=== PATIENT | female | born 1955 | race Caucasian/White ===

== ENCOUNTER 2023-05-13 01:31 | Inpatient (IN) | payer OTHER ==
[~2023-05-13] VITALS: Ht 160 cm; Wt 74.5 kg
[2023-05-13] MEDS ORDERED: TERA2CAP4 PO (01:47)
[2023-05-13] MEDS ORDERED: LISI20TA30 PO (01:47)
[2023-05-13] MEDS ORDERED: ASPI-612 PO (01:47)
[2023-05-13] MEDS ORDERED: AMLO2.5T4 PO (01:47)
[2023-05-13] MEDS ORDERED: ROSU40TA23 PO (01:47)
[2023-05-13 02:54] LABS: BASOPHILS % (AUTO) 0.6 % (0.0-2.0); EOSINOPHILS # (AUTO) 0.1 K/uL (0.0-0.7); EOSINOPHILS % (AUTO) 1.3 % (0.0-7.0); HEMOGLOBIN 12.4 g/dL (10.9-14.3); LYMPHOCYTES # (AUTO) 1.1 K/uL (0.8-4.8); LYMPHOCYTES % (AUTO) 20.2 % (20.5-51.5); MEAN CORPUSCULAR HEMOGLOBIN 29.8 uug (24.7-32.8); MEAN CORPUSCULAR HGB CONC 34 g/dL (32.3-35.6); MEAN CORPUSCULAR VOLUME 88.9 fL (75.5-95.3); MONOCYTES # (AUTO) 0.5 K/uL (0.1-1.30); MONOCYTES % (AUTO) 8.7 % (0.0-11.0); NEUTROPHILS # (AUTO) 3.9 K/uL (1.8-8.9); NEUTROPHILS % (AUTO) 69.2 % (38.5-71.5); PLATELET COUNT (AUTO) 199 K/uL (179-408); RED BLOOD CELL COUNT(AUTO) 4.16 MIL/uL (3.63-4.92); RED CELL DISTRIBUTION WIDTH 13.7 % (12.3-17.7); WHITE BLOOD COUNT (AUTO) 5.7 K/uL (3.8-11.8)
[2023-05-13 02:56] LABS: DIFFERENTIAL COMMENT 1
[2023-05-13] MEDS ORDERED: diphenhydrAMINE 50 MG/1 ML VIAL ONE (03:08)
[2023-05-13] MEDS ORDERED: MORPHINE SULFATE 4 MG/1 ML DISP.SYRIN ONE (03:08)
[2023-05-13 03:16] LABS: ALANINE AMINOTRANSFERASE 70 U/L (14-59); ALBUMIN 3.7 g/dL (3.4-5.0); ALKALINE PHOSPHATASE 56 U/L (50-136); ASPARTATE AMINOTRANSFERASE 45 U/L (15-37); BILIRUBIN,DIRECT 0.1 mg/dL (0.0-0.2); BILIRUBIN,TOTAL 0.5 mg/dL (0.2-1.0); CARBON DIOXIDE 26 mmol/L (21-32); CHLORIDE 103 mmol/L (98-107); GLUCOSE 117 mg/dL (74-106); POTASSIUM 3.7 mmol/L (3.5-5.1); SODIUM SERUM 139 mmol/L (136-145); TOTAL PROTEIN, SERUM 6.7 g/dL (6.4-8.2); UREA NITROGEN, BLOOD 22 mg/dL (7-18)
[2023-05-13] MEDS: diphenhydrAMINE 50 MG/1 ML VIAL IV ONE (03:16)
[2023-05-13] MEDS: MORPHINE SULFATE 4 MG/1 ML DISP.SYRIN IV ONE (03:17)
[2023-05-13] MEDS ORDERED: ONDANSETRON 4 MG/2 ML VIAL IV PRN (07:45)
[2023-05-13] MEDS ORDERED: REMEDY ESSENTIAL ZINC PASTE 113 GM TP PRN (07:45)
[2023-05-13] MEDS ORDERED: ACETAMINOPHEN 325 MG TABLET PO PRN (07:45)
[2023-05-13 07:57] LABS: *BILIRUBIN,URIN NEGATIVE (NEGATIVE); *BLOOD, URINE NEGATIVE (NEGATIVE); *CLARITY,URINE CLEAR (CLEAR); *COLOR,URINE YELLOW (YELLOW); *KETONES,URINE 1+ (NEGATIVE); *PROTEIN,URINE TRACE (NEGATIVE); *UROBILINOGEN,URINE 0.2 E.U./dl (NORMAL); LEUKOCYTE ESTERASE ,URINE NEGATIVE (NEGATIVE); NITRITE, URINE NEGATIVE (NEGATIVE); UGLUCOSE NEGATIVE (NEGATIVE)
[2023-05-13 08:02] LABS: *AMPHETAMINE, URINE NEGATIVE (NEGATIVE); *BARBITURATE, URINE NEGATIVE (NEGATIVE); *BENZODIAZEPINE, URINE NEGATIVE (NEGATIVE); *CANNABINOID, URINE NEGATIVE (NEGATIVE); *COCCAINE, URINE NEGATIVE (NEGATIVE); *OPIATE, URINE POSITIVE (NEGATIVE); *PHENCYCLIDINE SCREEN,URINE NEGATIVE (NEGATIVE); FENTANYL, URINE NEGATIVE (NEGATIVE)
[2023-05-13 08:25] LABS: BASOPHILS % (AUTO) 0.3 % (0.0-2.0); EOSINOPHILS % (AUTO) 0.4 % (0.0-7.0); HEMATOCRIT 34.6 % (31.2-41.9); HEMOGLOBIN 11.6 g/dL (10.9-14.3); LYMPHOCYTES # (AUTO) 0.8 K/uL (0.8-4.8); LYMPHOCYTES % (AUTO) 11.6 % (20.5-51.5); MEAN CORPUSCULAR HEMOGLOBIN 29.8 uug (24.7-32.8); MEAN CORPUSCULAR HGB CONC 34 g/dL (32.3-35.6); MEAN CORPUSCULAR VOLUME 88.9 fL (75.5-95.3); MONOCYTES # (AUTO) 0.5 K/uL (0.1-1.30); NEUTROPHILS # (AUTO) 5.8 K/uL (1.8-8.9); NEUTROPHILS % (AUTO) 80.7 % (38.5-71.5); PLATELET COUNT (AUTO) 217 K/uL (179-408); RED BLOOD CELL COUNT(AUTO) 3.89 MIL/uL (3.63-4.92); RED CELL DISTRIBUTION WIDTH 13.8 % (12.3-17.7); WHITE BLOOD COUNT (AUTO) 7.2 K/uL (3.8-11.8)
[2023-05-13 08:40] LABS: DIFFERENTIAL COMMENT 1
[2023-05-13 08:54] LABS: POTASSIUM 4.1 mmol/L (3.5-5.1)
[2023-05-13 08:56] LABS: BACTERIA,URINE FEW /HPF (NONE SEEN); SQUAMOUS EPITHELIAL CELL,UR FEW /HPF (NONE SEEN); URIC ACID CRYSTALS,URINE MODERATE /HPF (NONE SEEN); WBC,URINE 0-3 /HPF (0-3)
[2023-05-13] MEDS ORDERED: ASPIRIN 325 MG TABLET PO SCH (09:00)
[2023-05-13 09:03] LABS: ALBUMIN 3.5 g/dL (3.4-5.0); BILIRUBIN,TOTAL 0.6 mg/dL (0.2-1.0); MAGNESIUM 2.1 mg/dL (1.8-2.4); PHOSPHOROUS 4.2 mg/dL (2.5-4.9); TOTAL PROTEIN, SERUM 6.3 g/dL (6.4-8.2)
[2023-05-13 09:07] LABS: THYROID STIMULATING HORMONE 0.774 mIU/mL (0.358-3.740)
[2023-05-13] MEDS: MORPHINE SULFATE 2 MG/1 ML DISP.SYRIN IV PRN (10:49)
[2023-05-13] MEDS: AMLODIPINE 2.5 MG TABLET PO SCH (10:52)
[2023-05-13] MEDS: ASPIRIN EC 325 MG TABLET.DR PO SCH (10:52)
[2023-05-13] MEDS: LISINOPRIL 20 MG TABLET PO SCH (10:53)
[2023-05-13 11:15] VITALS: BP_SYST 127; BP_SYST 134; BP_SYST 138; BP_SYST 160; BP_DIAS 73; BP_DIAS 77; BP_DIAS 84; BP_DIAS 86; TEMP 98.8; O2SAT 96
[2023-05-13 15:22] VITALS: BP 167/64; TEMP 98.5; O2SAT 97
[2023-05-13 20:00] VITALS: BP 136/64; TEMP 98; O2SAT 95
[2023-05-13] MEDS: ROSUVASTATIN 40 MG PO SCH (20:40)
[2023-05-13] MEDS ORDERED: TERAZOSIN 1 MG CAPSULE PO SCH ×2 (21:00)
[2023-05-13] MEDS ORDERED: ROSUVASTATIN CALCIUM 40 MG PO SCH (21:00)
[2023-05-14] VITALS (8 sets, daily range): BP systolic 137–205; BP diastolic 70–90; TEMP 97.5–98.5; O2SAT 94–98
[2023-05-14] MEDS: IV NS 1000 ML 1,000 ML IV PRN (00:02)
[2023-05-14] MEDS: CLONIDINE HCL 0.1 MG TABLET PO PRN (01:05)
[2023-05-14 07:14] LABS: BASOPHILS % (AUTO) 0.8 % (0.0-2.0); EOSINOPHILS # (AUTO) 0.1 K/uL (0.0-0.7); EOSINOPHILS % (AUTO) 1.4 % (0.0-7.0); HEMATOCRIT 33.7 % (31.2-41.9); HEMOGLOBIN 11.4 g/dL (10.9-14.3); LYMPHOCYTES # (AUTO) 0.8 K/uL (0.8-4.8); LYMPHOCYTES % (AUTO) 15.9 % (20.5-51.5); MEAN CORPUSCULAR HEMOGLOBIN 30.2 uug (24.7-32.8); MEAN CORPUSCULAR HGB CONC 34 g/dL (32.3-35.6); MEAN CORPUSCULAR VOLUME 89.3 fL (75.5-95.3); MONOCYTES # (AUTO) 0.5 K/uL (0.1-1.30); MONOCYTES % (AUTO) 9.2 % (0.0-11.0); NEUTROPHILS # (AUTO) 3.7 K/uL (1.8-8.9); NEUTROPHILS % (AUTO) 72.7 % (38.5-71.5); PLATELET COUNT (AUTO) 189 K/uL (179-408); RED BLOOD CELL COUNT(AUTO) 3.77 MIL/uL (3.63-4.92); RED CELL DISTRIBUTION WIDTH 13.5 % (12.3-17.7)
[2023-05-14 07:30] LABS: CALCIUM 8.5 mg/dL (8.5-10.1); CREATININE 0.8 mg/dL (0.6-1.3); MAGNESIUM 2.1 mg/dL (1.8-2.4); PHOSPHOROUS 3.2 mg/dL (2.5-4.9); POTASSIUM 3.8 mmol/L (3.5-5.1)
[2023-05-14 07:44] LABS: DIFFERENTIAL COMMENT 1
[2023-05-14] MEDS ORDERED: VANCOMYCIN 1000 MG VIAL ONE (11:02)
[2023-05-14] MEDS ORDERED: FENTANYL CITRATE 100 MCG/2 ML AMPUL ONE (11:12)
[2023-05-14] MEDS ORDERED: BUPIVACAINE 0.25% 30 ML VIAL ONE (11:48)
[2023-05-14] MEDS ORDERED: IV D5W-0.45% NS +20 KCL 1,000 ML IV ONE (12:18)
[2023-05-14] MEDS ORDERED: METOCLOPRAMIDE HCL 10 MG/2 ML VIAL ONE (12:25)
[2023-05-14] MEDS ORDERED: ONDANSETRON 4 MG/2 ML VIAL ONE (12:25)
[2023-05-14] MEDS ORDERED: PROPOFOL 200 MG/20 ML BOTTLE ONE (12:25)
[2023-05-14] MEDS ORDERED: LIDOCAINE-MPF 2% 5 ML VIAL ONE (12:25)
[2023-05-14] MEDS ORDERED: EPHEDRINE SULFATE 50 MG/ML AMPUL ONE (12:25)
[2023-05-14] MEDS ORDERED: KETOROLAC TROMETHAMINE 30 MG INJ ONE (12:25)
[2023-05-14] MEDS ORDERED: CEFAZOLIN 1 G VIAL ONE (12:25)
[2023-05-14] MEDS ORDERED: DEXAMETHASONE SOD PHOSPHATE 4 MG INJ ONE (12:25)
[2023-05-14] MEDS ORDERED: HYDROCODONE/APAP 10-325 MG TABLET PO PRN (13:00)
[2023-05-14] MEDS ORDERED: MORPHINE SULFATE 4 MG/1 ML DISP.SYRIN IV PRN (13:00)
[2023-05-14] MEDS: MAGNESIUM HYDROXIDE 30 ML LIQUID UDC PO PRN (15:34)
[2023-05-14] MEDS: CEFAZOLIN 1 G in IV DEXTROSE 5% 50 ML IV SCH (18:13)
[2023-05-15] MEDS: IV D5W-0.45% NS +20 KCL 1,000 ML IV PRN (05:39)
[2023-05-15 06:00] VITALS: BP 193/82; TEMP 97.6; O2SAT 99
[2023-05-15] MEDS: LISINOPRIL 20 MG TABLET PO SCH (08:38)
[2023-05-15] MEDS: ASPIRIN EC 325 MG TABLET.DR PO SCH (08:38)
[2023-05-15 08:39] LABS: BASOPHILS % (AUTO) 0.3 % (0.0-2.0); EOSINOPHILS % (AUTO) 0.1 % (0.0-7.0); HEMATOCRIT 32.7 % (31.2-41.9); LYMPHOCYTES # (AUTO) 0.6 K/uL (0.8-4.8); LYMPHOCYTES % (AUTO) 7.9 % (20.5-51.5); MEAN CORPUSCULAR HEMOGLOBIN 30.2 uug (24.7-32.8); MEAN CORPUSCULAR HGB CONC 34 g/dL (32.3-35.6); MEAN CORPUSCULAR VOLUME 89.8 fL (75.5-95.3); MONOCYTES # (AUTO) 0.7 K/uL (0.1-1.30); MONOCYTES % (AUTO) 8.8 % (0.0-11.0); NEUTROPHILS # (AUTO) 6.7 K/uL (1.8-8.9); NEUTROPHILS % (AUTO) 82.9 % (38.5-71.5); PLATELET COUNT (AUTO) 194 K/uL (179-408); RED BLOOD CELL COUNT(AUTO) 3.64 MIL/uL (3.63-4.92); RED CELL DISTRIBUTION WIDTH 13.8 % (12.3-17.7); WHITE BLOOD COUNT (AUTO) 8.1 K/uL (3.8-11.8)
[2023-05-15] MEDS ORDERED: SENNOSIDES 1 TABLET PO PRN (08:45)
[2023-05-15 08:47] LABS: DIFFERENTIAL COMMENT 1
[2023-05-15] MEDS: LACTULOSE 20 G/30 ML LIQUID UDC PO ONE (08:51)
[2023-05-15 08:55] LABS: BILIRUBIN,TOTAL 0.3 mg/dL (0.2-1.0); CALCIUM 8.6 mg/dL (8.5-10.1); CREATININE 0.8 mg/dL (0.6-1.3); POTASSIUM 4.2 mmol/L (3.5-5.1); TOTAL PROTEIN, SERUM 6.1 g/dL (6.4-8.2)
[2023-05-15] MEDS ORDERED: IBUP-1955 PO (11:07)
[2023-05-15] MEDS ORDERED: HYDR-3972 PO (11:07)
[2023-05-15] MEDS ORDERED: ACET-2030 PO (11:07)
[2023-05-15 13:40] VITALS: BP 183/88
[2023-05-15] MEDS: hydrALAZINE HCL 20 MG/1 ML VIAL IV PRN (13:40)
[2023-05-15] MEDS ORDERED: AMLODIPINE 5 MG TABLET PO SCH (21:00)
== END 2023-05-15 15:45 | disposition home or self-care (01) | DRG 511 ==
LOC: ER 01:42 → TELE3 09:21 → MEDSURG3 05-14 08:18
PROVIDERS: ADMIT Internal Medicine; ATTEND Nurse Practitioner Acute Care
PROC: 0PSH04Z Reposition Right Radius with Internal Fixation Device, Open Approach (ICD-10-PCS; principal; 2023-05-14)
DX: S52.591A Other fractures of lower end of right radius, initial encounter for closed fracture (principal); E87.29 Other acidosis; R55 Syncope and collapse; T44.6X5A Adverse effect of alpha-adrenoreceptor antagonists, initial encounter; Y92.002 Bathroom of unspecified non-institutional (private) residence as the place of occurrence of the external cause; E86.0 Dehydration; R01.1 Cardiac murmur, unspecified; Z86.73 Personal history of transient ischemic attack (TIA), and cerebral infarction without residual deficits; E78.5 Hyperlipidemia, unspecified; E66.9 Obesity, unspecified; Z68.29 Body mass index [BMI] 29.0-29.9, adult; L40.9 Psoriasis, unspecified; Z79.82 Long term (current) use of aspirin; Z79.899 Other long term (current) drug therapy; I11.9 Hypertensive heart disease without heart failure
CPT/HCPCS: 36415; 70450; 71045; 73100; 83605; 83735; 84100; 84443; 84484; 85025; 85730; 87040; 93005; 93307; A4649; C1713; G0378; J0360; J0690; J1100; J1200; J1885; J2270; J2405; J2765; J3010; J3370; J3490; J7040